=== PATIENT | male | born 2000 ===

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

== ENCOUNTER 2022-05-20 07:26 | Outpatient (CLI) | payer OTHER | END 2022-05-20 07:27 | disposition home or self-care (01) | LOC: ULT 07:26 | PROVIDERS: ATTEND Student in an Organized Health Care Education/Training Program | DX: R74.8 Abnormal levels of other serum enzymes (principal); R16.0 Hepatomegaly, not elsewhere classified; K76.0 Fatty (change of) liver, not elsewhere classified | CPT/HCPCS: 76705 ==